=== PATIENT | female | born 1965 | race Two or more races ===

== ENCOUNTER 2018-03-10 01:11 | Emergency (ER) | payer OTHER ==
[2018-03-10 01:20] VITALS: BP 140/91
--- NOTE | 2018-03-10 01:42 | ED Physician Documentation ---
History of Present Illness - Stated complaint Stated Complaint: DENTAL PAIN - Chief complaint Chief Complaint: Heent - History obtained from History obtained from: Patient - Additonal information Additional information: 52-year-old female presents to the emergency department with right sided dental pain. The patient's dentist started her on amoxicillin and Motrin. The patient presents the emergency department for pain control. The patient denies facial swelling, tongue swelling, difficulty swallowing or neck tightness or difficulty breathing. Symptoms are described as moderate. No other associated symptoms. No relieving factors Review of Systems Constitutional: denies: Fever, Chills Ears: reports: Ear pain Nose: denies: Foreign Body Throat: reports: Dental pain / toothache. denies: Oral lesions / sores, Sore throat Cardiac: denies: Chest pain / pressure Respiratory: denies: Dyspnea Skin: denies: Rash Musculoskeletal: denies: Neck pain PD PAST MEDICAL HISTORY - Past Medical History Past Medical History: No - Past Surgical History Past Surgical History: Yes General: Cholecystectomy - Present Medications Home Medications: Ambulatory Orders Medication Instructions Recorded Confirmed Amoxicillin 1 cap PO TID 03/10/18 03/10/18 HYDROcod/ACETAM 5/325 [[place] 5/325] 1 each PO Q6H PRN #10 tablet 03/10/18 Ibuprofen 800 mg PO Q8HR PRN 03/10/18 03/10/18 - Allergies Allergies/Adverse Reactions: Allergies Allergy/AdvReac Type Severity Reaction Status Date / Time No Known Drug Allergies Allergy Verified 03/10/18 01:24 - Social History Does the pt smoke?: Yes Smoking Status: Current every day smoker Does the pt drink ETOH?: Yes Does the pt have substance abuse?: No - Immunizations Immunizations are current?: Yes - POLST Patient has POLST: No PD ED PE NORMAL - General General: Alert and oriented X 3 - HEENT HEENT: Atraumatic, PERRL, EOMI, Ears normal - Cardiac Cardiac: RRR - Respiratory Respiratory: No respiratory distress - Derm Derm: Normal color - Neuro Neuro: Alert and oriented X 3, Normal speech - Psych Psych: Normal mood PD ED PE EXPANDED - General General: In Pain - HEENT HEENT: Other (The patient has multiple prior dental extractions, the patient has multiple prior dental procedures. The patient's tender to palpation. There is evidence of gingivitis. There is no identifiable drainable abscess intraorally. The patient's tongue is within normal limits. The posterior pharynx is within normal limits. The floor of the mouth is moist and soft. The patient's face is symmetric. The patient has no erythematous changes or swelling of the face) HEENT Visual: 1 - tenderness Results - Vitals Vitals: Vital Signs - 24 hr 03/10/18 01:15 Temperature 36.0 C L Heart Rate 89 Respiratory 16 Rate Blood Pressure 140/91 H O2 Saturation 99 Oxygen O2 Source Room air PD MEDICAL DECISION MAKING - ED course ED course: The patient's pain appears to be secondary from a dental etiology. The patient is already on an antibiotic and anti-inflammatories. The patient will be treated with a short course of hydrocodone to help manage her pain. The patient is scheduled to see her dentist this Sunday. I discussed warning signs and recommended returning to the emergency department immediately for worsening or any concerns. - Sepsis Event Vital Signs: Vital Signs - 24 hr 03/10/18 01:15 Temperature 36.0 C L Heart Rate 89 Respiratory 16 Rate Blood Pressure 140/91 H O2 Saturation 99 Oxygen O2 Source Room air Departure - Departure Disposition: Home, Self Care Clinical Impression: Pain, dental Condition: Good Instructions: ED Tooth Pain Prescriptions: HYDROcod/ACETAM 5/325 [[place] 5/325] 1 each PO Q6H PRN #10 tablet PRN Reason: Pain Comments: Please follow-up as scheduled with your dentist this Sunday. Please return to the emergency department immediately for worsening or any concerns.
[2018-03-10] MEDS: HYDROcod/ACETAM 10 MG/325 MG TABLET PO STA (01:44)
== END 2018-03-10 01:48 | disposition home or self-care (01) ==
LOC: ED 01:11
DX: K08.89 Other specified disorders of teeth and supporting structures (principal); F17.200 Nicotine dependence, unspecified, uncomplicated
CPT/HCPCS: 99283; A9270

== ENCOUNTER 2021-05-02 10:56 | Outpatient (CLI) | payer OTHER ==
--- NOTE | 2021-05-05 08:40 | Mammography Report ---
BILATERAL DIGITAL SCREENING MAMMOGRAM 3D/2D: 05/02/2021 CLINICAL: Routine screening. Comparison is made to exams dated: 10/07/2015 mammogram, 04/07/2013 mammogram, and 10/18/2010 mammogram - [facility]. There are scattered fibroglandular elements in both breasts. No significant masses, calcifications, or other findings are seen in either breast. There has been no significant interval change. IMPRESSION: NEGATIVE There is no mammographic evidence of malignancy. A 1 year screening mammogram is recommended. This exam was interpreted at Station ID: [id number]. NOTE: For mammograms, a report in lay terms will be sent to the patient. Approximately 15% of breast malignancies will not be visualized mammographically. In the management of a palpable breast mass, a negative mammogram must not discourage biopsy of a clinically suspicious lesion. Electronically Signed By: Jam Walker M.D., [email or web address]/[email or web address]:05/04/2021 12:08:11 ACR BI-RADS Category 1: Negative 3341F PARENCHYMAL PATTERN: (A) - The breast(s) demonstrate(s) scattered fibroglandular densities. BI-RADS CATEGORY: (1) - 1 RECOMMENDATION: (ANNUAL) - Recommend routine annual screening mammography. [id number] 1 year screening LATERALITY: (B)
== END 2021-05-02 10:57 | disposition home or self-care (01) ==
LOC: DI.N 10:56
DX: Z12.31 Encounter for screening mammogram for malignant neoplasm of breast (principal)

== ENCOUNTER 2021-05-31 13:07 | Emergency (ER) | payer OTHER ==
[2021-05-31] MEDS ORDERED: BENZONATATE 100 MG CAPSULE PO STA (13:38)
[2021-05-31] MEDS ORDERED: ALBUTEROL 1 PUFF INH STA (13:38)
--- NOTE | 2021-05-31 13:45 | ED Physician Documentation ---
PD HPI URI - Stated complaint Stated Complaint: SORE THROAT,CONGESTION - Chief complaint Chief Complaint: Resp - History obtained from History obtained from: Patient - History of Present Illness Timing - onset: How many days ago (3) Timing duration: Days (3) Timing details: Gradual onset Pain level max: 0 Pain level now: 0 Associated symptoms: Nasal congestion, Rhinorrhea, Sore throat, Dry cough, Dyspnea (wheezing). No: Fever, Chills Contributing factors: Sick contact (works in a bank), Other (has had both covid vaccinations) Improves by: Rest Worsened by: Activity, Breathing Recently seen: Not recently seen Review of Systems Ten Systems: 10 systems reviewed and negative Constitutional: denies: Fever, Chills GI: denies: Vomiting, Diarrhea Skin: denies: Rash Musculoskeletal: denies: Neck pain, Back pain Neurologic: denies: Headache PD PAST MEDICAL HISTORY - Past Medical History Past Medical History: Yes Cardiovascular: None Respiratory: None Neuro: None Endocrine/Autoimmune: None GI: G[employer]: None : None HEENT: None Psych: Anxiety Musculoskeletal: None Derm: None - Past Surgical History Past Surgical History: Yes General: Cholecystectomy /[employer]: Tubal ligation - Present Medications Home Medications: Ambulatory Orders Medication Instructions Recorded Confirmed Albuterol Sulf [Ventolin Hfa 1 - 2 puffs INH Q4HR PRN #1 inhaler 05/31/21 Inhaler] Benzonatate [Tessalon] 200 mg PO TID PRN #30 cap 05/31/21 Naproxen Sodium [Aleve] 220 mg PO BID PRN 05/31/21 05/31/21 Omeprazole Magnesium 20 mg PO DAILY 05/31/21 05/31/21 Sertraline [Zoloft] 150 mg PO DAILY 05/31/21 05/31/21 guaiFENesin [Mucinex] 600 mg PO BID PRN 05/31/21 05/31/21 - Allergies Allergies/Adverse Reactions: Allergies Allergy/AdvReac Type Severity Reaction Status Date / Time bee venom protein (honey bee) Allergy Anaphylaxis Verified 05/31/21 13:15 - Social History Does the pt smoke?: No Smoking Status: Never smoker Does the pt drink ETOH?: Yes Does the pt have substance abuse?: No - Immunizations Immunizations are current?: Yes - POLST Patient has POLST: No PD ED PE NORMAL - Vitals Vital signs reviewed: Yes - General General: Alert and oriented X 3, No acute distress, Well developed/nourished - HEENT HEENT: Ears normal, Moist mucous membranes, Pharynx benign - Neck Neck: Supple, no meningeal sign - Cardiac Cardiac: RRR - Respiratory Respiratory: No respiratory distress, Other (mild wheezing B) - Abdomen Abdomen: Soft, Non tender, Non distended - Derm Derm: Warm and dry - Extremities Extremities: No edema, No calf tenderness / cord - Neuro Neuro: Alert and oriented X 3 - Psych Psych: Normal mood, Normal affect Results - Vitals Vitals: Vital Signs - 24 hr 05/31/21 05/31/21 13:10 14:04 Temperature 37.0 C Heart Rate 126 H 115 H Respiratory 18 24 Rate Blood Pressure 152/119 H O2 Saturation 98 Oxygen O2 Source Room air - Labs Labs: Laboratory Tests 05/31/21 13:55 Nasal Adenovirus (PCR) NOT DETECTED Nasal B. parapertussis DNA (PCR) NOT DETECTED Nasal Coronavir 229E PCR NOT DETECTED Nasal Coronavir HKU1 PCR NOT DETECTED Nasal Coronavir NL63 PCR NOT DETECTED Nasal Coronavir OC43 PCR NOT DETECTED Nasal Enterovir/Rhinovir PCR DETECTED A Nasal Influenza B PCR NOT DETECTED Nasal Influenza A PCR NOT DETECTED Nasal Parainfluen 1 PCR NOT DETECTED Nasal Parainfluen 2 PCR NOT DETECTED Nasal Parainfluen 3 PCR NOT DETECTED Nasal Parainfluen 4 PCR NOT DETECTED Nasal RSV (PCR) NOT DETECTED Nasal B.pertussis DNA PCR NOT DETECTED Nasal C.pneumoniae (PCR) NOT DETECTED [place] Human Metapneumo PCR NOT DETECTED Nasal M.pneumoniae (PCR) NOT DETECTED Nasal SARS-CoV-2 (PCR) NOT DETECTED - Rads (name of study) cxr Radiology: Final report received, EMP read contemporaneously, See rad report (no acute abnormality) PD MEDICAL DECISION MAKING - ED course Complexity details: reviewed results, re-evaluated patient, considered differential, d/w patient ED course: 55-year-old female presents to the emergency department with what appears to be a viral upper respiratory infection. Negative Covid test. Positive for rhinovirus. Negative chest x-ray. Feels better after an albuterol inhaler. Tachypnea decreased. No hypoxia. We will continue supportive care, prescribe inhaler for home and have her follow-up with her doctor as needed. Patient counseled regarding signs and symptoms for which I believe and urgent re- evaluation would be necessary. Patient with good understanding of and agreement to plan and is comfortable going home at this time This document was made in part using voice recognition software. While efforts are made to proofread this document, sound alike and grammatical errors may occur. Departure - Departure Disposition: Home, Self Care Clinical Impression: Rhinovirus Upper respiratory tract infection Qualifiers: URI type: unspecified URI Qualified Code(s): J06.9 - Acute upper respiratory infection, unspecified Condition: Good Instructions: ED URI Viral W Wheezing Follow-Up: Bethany Fortune PA-C [Primary Care Provider] - Within 1 week Prescriptions: Albuterol Sulf [Ventolin Hfa Inhaler] 1 - 2 puffs INH Q4HR PRN #1 inhaler PRN Reason: Shortness Of Air/Wheezing Benzonatate [Tessalon] 200 mg PO TID PRN #30 cap PRN Reason: Cough Comments: Follow-up with your doctor as needed for further care. Return if you worsen. Drink plenty of fluids and rest. There is no pneumonia on your chest x-ray today. Use the inhaler as needed for any difficulty breathing. Your prescriptions were sent to [facility] in [place] today your COVID test is negative. you are positive for rhinovirus today.
--- NOTE | 2021-05-31 13:58 | XRAY Report ---
PROCEDURE: Chest 1 View X-Ray INDICATIONS: cough TECHNIQUE: One view of the chest was acquired. COMPARISON: None available. FINDINGS: SUPPORT DEVICES: None. LUNG/PLEURA: No focal consolidation or pulmonary edema. No pleural effusion or space-occupying pneumo thorax. MEDIASTINUM: The cardiomediastinal silhouette is within normal limits. BONES/SOFT TISSUES: No acute abnormality. IMPRESSION: 1.No acute cardiopulmonary abnormality. Reviewed by: Rio Puri MD on 05/31/2021 1:57 PM PDT Approved by: Rio Puri MD on 05/31/2021 1:57 PM PDT Station ID: [id number]
[2021-05-31 14:54] LABS: CORONAVIRUS 229E-RESP PCR NOT DETECTED; CORONAVIRUS HKU1-RESP PCR NOT DETECTED; CORONAVIRUS NL63-RESP PCR NOT DETECTED; CORONAVIRUS OC43-RESP PCR NOT DETECTED; HUMAN METAPNEUMOVIRUS NOT DETECTED; SARS-CoV-2 -RESP PCR PANEL NOT DETECTED
[2021-05-31 14:55] LABS: B. PARAPERTUSSIS- RESP PCR PAN NOT DETECTED; B. PERTUSSIS- RESP PCR PANEL NOT DETECTED; C. PNEUMONIAE- RESP PCR PANEL NOT DETECTED; INFLUENZA A- RESP PCR PANEL NOT DETECTED; INFLUENZA B - RESP PCR PANEL NOT DETECTED; M. PNEUMONIAE- RESP PCR PANEL NOT DETECTED; PARAINFLUENZA VIRUS 1 NOT DETECTED; PARAINFLUENZA VIRUS 2 NOT DETECTED; PARAINFLUENZA VIRUS 3 NOT DETECTED; PARAINFLUENZA VIRUS 4 NOT DETECTED; RHINOVIRUS/ENTEROVIRUS DETECTED; RSV- RESP PCR PANEL NOT DETECTED
[2021-05-31 15:26] VITALS: BP 135/84
== END 2021-05-31 15:27 | disposition home or self-care (01) ==
LOC: ED 13:07
DX: B34.8 Other viral infections of unspecified site (principal); J06.9 Acute upper respiratory infection, unspecified; Z20.822 Contact with and (suspected) exposure to COVID-19
CPT/HCPCS: 0202U; 71045; 94640; 94664; 99284; A9270

== ENCOUNTER 2021-06-24 08:00 | Outpatient (CLI) | payer OTHER ==
[2021-06-24 12:05] LABS: BASOPHILS % (AUTO) 0.6 %; EOSINOPHILS # (AUTO) 0.1 10^3/uL (0.0-0.7); EOSINOPHILS % (AUTO) 1.5 %; HCT - HEMATOCRIT 42.9 % (37.0-47.0); HGB - HEMOGLOBIN 14.3 g/dL (12.0-16.0); LYMPHOCYTES # (AUTO) 1.9 10^3/uL (1.5-3.5); LYMPHOCYTES % (AUTO) 34.5 %; MEAN CORPUSCULAR HEMOGLOBIN 32.3 pg (27.0-31.0); MEAN CORPUSCULAR HGB CONC 33.3 g/dL (32.0-36.0); MEAN CORPUSCULAR VOLUME 96.8 fL (81.0-99.0); MEAN PLATELET VOLUME 10.5 fL (7.9-10.8); MONOCYTES # (AUTO) 0.4 10^3/uL (0.0-1.0); MONOCYTES % (AUTO) 8.2 %; NEUTROPHILS % (AUTO) 55.2 %; PLT - PLATELET COUNT 304 10^3/uL (130-450); RED BLOOD COUNT 4.43 10^6/uL (4.20-5.40); RED CELL DISTRIBUTION WIDTH 12.6 % (12.0-15.0); WHITE BLOOD COUNT 5.4 x10^3/uL (4.8-10.8)
[2021-06-24 14:30] LABS: THYROID STIMULATING HORMONE 1.54 uIU/mL (0.34-5.60)
[2021-06-24 14:50] LABS: ALBUMIN 4.2 g/dL (3.2-5.5); ALBUMIN/GLOBULIN RATIO 1.1 (1.0-2.2); ALKALINE PHOSPHATASE 86 IU/L (42-121); ALT ALANINE AMINOTRANSFERASE 80 IU/L (10-60); AST ASPARTATE AMINOTRANSFERASE 46 IU/L (10-42); BUN - BLOOD UREA NITROGEN 14 mg/dL (6-20); CALCIUM 10.1 mg/dL (8.5-10.3); CARBON DIOXIDE - CO2 26 mmol/L (21-32); CHLORIDE 101 mmol/L (101-111); CHOL/HDL RATIO 3.6 (<4.4); CHOLESTEROL 287 mg/dL; CREATININE 0.7 mg/dL (0.4-1.0); GFR - MDRD 88 (>89); GLUCOSE 110 mg/dL (70-100); HDL CHOLESTEROL 80 mg/dL; LDL CHOLESTEROL,CALCULATED 169 mg/dL; LDL/HDL RATIO 2.1 (<4.4); SODIUM 138 mmol/L (135-145); TOTAL PROTEIN 7.9 g/dL (6.7-8.2); TRIGLYCERIDES 188 mg/dL; VLDL CHOLESTEROL 38 mg/dL
== END 2021-06-24 23:59 | disposition home or self-care (01) ==
LOC: LAB.WCP 08:00
PROVIDERS: ATTEND Physician Assistant Medical
DX: Z00.00 Encounter for general adult medical examination without abnormal findings (principal)
CPT/HCPCS: 36415; 80050; 80061; 83721

== ENCOUNTER 2022-03-17 08:00 | Outpatient (CLI) | payer OTHER ==
--- NOTE | 2022-03-17 13:57 | XRAY Report ---
PROCEDURE: Finger(s) LT INDICATIONS: FINGER TECHNIQUE: AP hand, 3 views of the renal finger(s) acquired. COMPARISON: 02/24/2022 FINDINGS: Bones: No fractures or dislocations. No suspicious bony lesions. Normal degenerative changes of the interphalangeal joints. No erosions. Soft tissues: No suspicious soft tissue calcifications. IMPRESSION: No acute or significant abnormality of the left hand. No radiographic evidence of inflam matory arthropathy. Reviewed by: Sae Galvez on 03/17/2022 1:55 PM PDT Approved by: Sae Galvez on 03/17/2022 1:55 PM PDT Station ID: [id number]
== END 2022-03-17 23:59 | disposition home or self-care (01) ==
LOC: DI.WOS 08:00
PROVIDERS: ATTEND Physician Assistant Surgical
DX: S60.032A Contusion of left middle finger without damage to nail, initial encounter (principal)

== ENCOUNTER 2023-04-04 08:57 | Outpatient (CLI) | payer OTHER ==
--- NOTE | 2023-04-05 11:37 | Mammography Report ---
BILATERAL DIGITAL SCREENING MAMMOGRAM 3D/2D: 04/04/2023 CLINICAL: Routine screening. Comparison is made to exams dated: 05/02/2021 mammogram - [facility], 10/07/2015 [facility], 04/07/2013 mammogram, and 10/18/2010 mammogram - [facility]. There are scattered areas of fibroglandular density in both breasts (category b / 25%-50% glandular t issue). No significant masses, calcifications, or other findings are seen in either breast. There has been no significant interval change. IMPRESSION: NEGATIVE There is no mammographic evidence of malignancy. A 1 year screening mammogram is recommended. Based on the Tyrer Cuzick model (a risk assessment model) the patients lifetime risk is 9.4% and her 10 year risk is 2.9%. According to the ACR, ACS, and NCCN guidelines, an annual breast MRI exam wes g with mammogram is recommended if the patients lifetime risk is 20% or greater. This exam was interpreted at Station ID: [id number]. NOTE: For mammograms, a report in lay terms will be sent to the patient. Approximately 15% of breast malignancies will not be visualized mammographically. In the management of a palpable breast mass, a negative mammogram must not discourage biopsy of a clinically suspicious lesion. Electronically Signed By: Elie coleman/basilio:04/04/2023 13:26:30 letter sent: No_Letter ACR BI-RADS Category 1: Negative 3341F PARENCHYMAL PATTERN: (A) - The breast(s) demonstrate(s) scattered fibroglandular densities. BI-RADS CATEGORY: (1) - 1 Mammogram [id number] 1 year screening LATERALITY: (B)
== END 2023-04-04 08:58 | disposition home or self-care (01) ==
LOC: DI.N 08:57
DX: Z12.31 Encounter for screening mammogram for malignant neoplasm of breast (principal)

== ENCOUNTER 2024-04-28 08:00 | Outpatient (CLI) | payer OTHER | END 2024-04-28 23:59 | disposition home or self-care (01) | LOC: LAB.WCP 08:00 | PROVIDERS: ATTEND Physician Assistant Medical | DX: L73.9 Follicular disorder, unspecified (principal) | CPT/HCPCS: 87640 ==